=== PATIENT | female | born 1995 | race Caucasian/White ===

== ENCOUNTER 2018-09-06 14:07 | Emergency (ER) | payer OTHER ==
[~2018-09-06] VITALS: Ht 165.1 cm; Wt 85.9 kg
[2018-09-06 14:11] VITALS: BP 105/55
[2018-09-06 16:16] LABS: CLARITY,URINE CLEAR (Clear); COLOR,URINE YELLOW (Yellow); GLUCOSE, URINE NEGATIVE (Neg); KETONES,URINE NEGATIVE (Neg); LEUKOCYTE ESTERASE ,URINE TRACE (Neg); NITRITES, URINE NEGATIVE (Neg); OCCULT BLOOD,URINE NEGATIVE (Neg); PH,URINE 6.5 (4.8-8.0); PROTEIN,URINE NEGATIVE (Neg); UROBILINOGEN,URINE 0.2 E.U/dL (0.2-1.0)
[2018-09-06 16:20] LABS: UA COLLECTION TYPE CLN CATCH MIDSTREAM
[2018-09-06] MEDS ORDERED: SULF1TAB49 PO (16:22)
[2018-09-06 16:25] LABS: RBC,URINE 0-2 /HPF (0-2); WBC,URINE 20-30 /HPF (0-4)
[2018-09-06 16:26] LABS: BACTERIA,URINE 3+ /HPF (Neg); MUCUS STRANDS NONE SEEN /LPF (Neg); SQUAMOUS EPITHELIAL CELL,UR FEW /LPF (FEW); WBC CLUMPS,URINE FEW /HPF (NEGATIVE)
== END 2018-09-06 17:09 | disposition home or self-care (01) ==
LOC: ER 14:09
DX: N39.0 Urinary tract infection, site not specified (principal); N89.8 Other specified noninflammatory disorders of vagina; K59.00 Constipation, unspecified; Z79.2 Long term (current) use of antibiotics
CPT/HCPCS: 36415; 81001; 87210; 87491; 99283

== ENCOUNTER 2018-10-01 12:56 | Emergency (ER) | payer OTHER ==
[~2018-10-01] VITALS: Ht 165.1 cm; Wt 85.5 kg
[2018-10-01 13:16] VITALS: BP 103/60
[2018-10-01] MEDS ORDERED: MAGN296S50 PO (13:19)
== END 2018-10-01 14:20 | disposition home or self-care (01) ==
LOC: ER 12:57
DX: K59.00 Constipation, unspecified (principal); Z79.899 Other long term (current) drug therapy
CPT/HCPCS: 99282

== ENCOUNTER 2018-10-07 21:02 | Emergency (ER) | payer OTHER ==
[~2018-10-07] VITALS: Ht 165.1 cm; Wt 81.8 kg
[~2018-10-07 21:02] MED LIST: MAGN296S50 PO
[2018-10-07 21:38] VITALS: BP 125/70
[2018-10-07] MEDS ORDERED: LOPE2TAB25 PO (22:47)
== END 2018-10-07 23:06 | disposition home or self-care (01) ==
LOC: ER 21:03
DX: A08.4 Viral intestinal infection, unspecified (principal); Z79.899 Other long term (current) drug therapy
CPT/HCPCS: 99282

== ENCOUNTER 2018-12-24 10:43 | Emergency (ER) | payer OTHER ==
[~2018-12-24] VITALS: Ht 160 cm; Wt 87.0 kg
[~2018-12-24 10:43] MED LIST changes: +LOPE2TAB25 PO
[2018-12-24] MEDS ORDERED: ketorolac trometh. 30mg/ml inj. IV ONE (12:40)
[2018-12-24] MEDS ORDERED: normal saline 1000ML IV soln IVB ONE (12:40)
[2018-12-24] MEDS ORDERED: metoclopramide 5 mg/ml inj IV ONE (12:40)
[2018-12-24] MEDS ORDERED: diphenhydrAMINE 50 mg/ml inj IV ONE (12:40)
[2018-12-24 14:42] VITALS: BP 105/48
== END 2018-12-24 14:38 | disposition home or self-care (01) ==
LOC: ER 10:43
DX: G43.909 Migraine, unspecified, not intractable, without status migrainosus (principal); R11.2 Nausea with vomiting, unspecified
CPT/HCPCS: 96361; 96374; 96375; 99283; J1200; J1885; J2765; J7030

== ENCOUNTER 2019-02-17 16:09 | Emergency (ER) | payer OTHER, SELFPAY ==
[~2019-02-17] VITALS: Ht 162.6 cm; Wt 77.3 kg
[2019-02-17 16:48] VITALS: BP 120/73
--- NOTE | 2019-02-17 17:40 | NUR ---
Speculum and forcepts placed in room for possible removal of tampon.
== END 2019-02-17 17:46 | disposition home or self-care (01) ==
LOC: ER 16:11
DX: R10.30 Lower abdominal pain, unspecified (principal); Z79.899 Other long term (current) drug therapy
CPT/HCPCS: 99283

== ENCOUNTER 2019-03-04 11:24 | Emergency (ER) | payer OTHER, MEDICAID ==
[~2019-03-04] VITALS: Ht 165.1 cm; Wt 99.0 kg
[~2019-03-04 11:24] MED LIST changes: -MAGN296S50 PO; +MAGN296S70 PO
[2019-03-04 11:37] VITALS: BP 108/53
[2019-03-04 12:03] LABS: CLARITY,URINE SLIGHTLY CLOUDY (Clear); COLOR,URINE STRAW (Yellow); GLUCOSE, URINE NEGATIVE (Neg); KETONES,URINE NEGATIVE (Neg); LEUKOCYTE ESTERASE ,URINE NEGATIVE (Neg); NITRITES, URINE NEGATIVE (Neg); OCCULT BLOOD,URINE NEGATIVE (Neg); PROTEIN,URINE NEGATIVE (Neg); UROBILINOGEN,URINE 0.2 E.U/dL (0.2-1.0)
[2019-03-04 12:05] LABS: URINE HCG NEGATIVE (NEG)
[2019-03-04 12:06] LABS: UA COLLECTION TYPE CLN CATCH MIDSTREAM
[2019-03-04 12:10] LABS: SQUAMOUS EPITHELIAL CELL,UR MANY /LPF (FEW)
[2019-03-04 12:11] LABS: BACTERIA,URINE FEW /HPF (Neg); RBC,URINE 0-2 /HPF (0-2); WBC,URINE 0-4 /HPF (0-4)
[2019-03-04] MEDS ORDERED: CefTRIAXone 1000mg IM Kit (w/lidocaine diluent) IM ONE (12:25)
[2019-03-04] MEDS ORDERED: azithromycin 250mg tablet PO ONE (12:25)
[2019-03-04] MEDS ORDERED: BENZ-16 PO (13:17)
[2019-03-04] MEDS ORDERED: ALBU18HF2 INH (13:17)
== END 2019-03-04 13:27 | disposition home or self-care (01) ==
LOC: ER 11:24
DX: N89.8 Other specified noninflammatory disorders of vagina (principal); R05 Cough
CPT/HCPCS: 81001; 81025; 87210; 96372; 99283; J0696

== ENCOUNTER 2019-04-13 19:35 | Emergency (ER) | payer OTHER, MEDICAID ==
[~2019-04-13] VITALS: Ht 165.1 cm; Wt 88.4 kg
[~2019-04-13 19:35] MED LIST changes: +ALBU18HF2 INH
[2019-04-13 19:53] VITALS: BP 128/85
[2019-04-13] MEDS ORDERED: predniSONE 20 mg tablet PO ONE (20:15)
[2019-04-13] MEDS ORDERED: ipratropium/albuterol 3ml nebule NEB ONE (20:15)
[2019-04-13] MEDS ORDERED: PRED20TA PO (20:19)
[2019-04-13] MEDS ORDERED: acetaminophen 325mg tablet PO ONE (20:30)
--- NOTE | 2019-04-13 20:31 | NUR ---
RT AT BEDSIDE.
== END 2019-04-13 20:59 | disposition home or self-care (01) ==
LOC: ER 19:36
DX: J45.901 Unspecified asthma with (acute) exacerbation (principal); J06.9 Acute upper respiratory infection, unspecified; Z79.899 Other long term (current) drug therapy
CPT/HCPCS: 94640; 99283; J7512; 94760

== ENCOUNTER 2019-04-16 18:47 | Emergency (ER) | payer OTHER, MEDICAID ==
[~2019-04-16] VITALS: Ht 165.1 cm; Wt 87.7 kg
[~2019-04-16 18:47] MED LIST changes: +PRED20TA PO
[2019-04-16 19:27] VITALS: BP 121/77
[2019-04-16] MEDS ORDERED: AZIT500T9 PO (19:49)
[2019-04-16] MEDS ORDERED: ipratropium/albuterol 3ml nebule NEB ONE (19:50)
== END 2019-04-16 20:57 | disposition home or self-care (01) ==
LOC: ER 18:48
DX: J45.901 Unspecified asthma with (acute) exacerbation (principal); Z79.899 Other long term (current) drug therapy
CPT/HCPCS: 71045; 94640; 94760; 99283